=== PATIENT | male | born 1960 | race Caucasian/White ===

== ENCOUNTER 2017-11-21 00:58 | Emergency (ER) | payer OTHER ==
[~2017-11-21] VITALS: Ht 170.2 cm; Wt 74.8 kg
[2017-11-21 01:09] VITALS: Ht 170.2 cm; Wt 74.8 kg
[2017-11-21 02:22] VITALS: BP 125/84
== END 2017-11-21 02:22 | disposition home or self-care (01) ==
LOC: ED 00:58
DX: F10.129 Alcohol abuse with intoxication, unspecified (principal)